=== PATIENT | female | born 1970 | race Caucasian/White ===

== ENCOUNTER 2019-01-02 09:51 | Outpatient (CLI) | payer MEDICAID ==
[2019-01-02 11:40] LABS: THYROID STIMULATING HORMONE 1.44 uIU/mL (0.34-5.60)
[2019-01-02 11:45] LABS: FREE T4 (FREE THYROXINE) 0.74 ng/dL (0.58-1.64)
[2019-01-02 12:08] LABS: FOLLICLE STIMULATING HORMONE 6.07 mIU/mL
[2019-01-02 12:09] LABS: LUTEINIZING HORMONE 10.02 mIU/mL
[2019-01-02 19:36] LABS: TOTAL T3 1.03 ng/mL (0.87-1.78)
[2019-01-03 07:02] LABS: PROGESTERONE 2.2 ng/mL
== END 2019-01-02 09:52 | disposition home or self-care (01) ==
LOC: LAB 09:51
PROVIDERS: ATTEND Internal Medicine Endocrinology, Diabetes & Metabolism
DX: R63.5 Abnormal weight gain (principal); Z86.39 Personal history of other endocrine, nutritional and metabolic disease
CPT/HCPCS: 36415; 82533; 82670; 83001; 83002; 84144; 84439; 84443; 84480; 84481

== ENCOUNTER 2019-02-27 18:08 | Emergency (ER) | payer MEDICAID ==
--- NOTE | 2019-02-27 18:35 | ED Physician Documentation ---
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 She was on coumadin but is not now. More recently had severe unexplained weight gain. Normal TSH. She had an abnormal ACTH stim test and high resting cortisol's. She is scheduled for repeat ACTH stim test and potentially an CT to look for adrenal masses upcoming. Today she had significant shortness of breath with exertion and feels weak and dizzy. She denies leg pain. There is some chest heaviness but no pain per se.) Review of Systems Ten Systems: 10 systems reviewed and negative Constitutional: reports: Fatigue. denies: Fever, Chills Cardiac: denies: Chest pain / pressure, Palpitations, Pedal edema, Calf pain Respiratory: reports: Dyspnea. denies: Cough, Hemoptysis, Wheezing PD PAST MEDICAL HISTORY - Allergies Allergies/Adverse Reactions: Allergies Allergy/AdvReac Type Severity Reaction Status Date / Time No Known Drug Allergies Allergy Verified 02/27/19 18:14 PD ED PE NORMAL - Vitals Vital signs reviewed: Yes - General General: Alert and oriented X 3, No acute distress - HEENT HEENT: PERRL, EOMI - Neck Neck: Supple, no meningeal sign, No bony TTP - Cardiac Cardiac: RRR (But tachycardic), No murmur - Respiratory Respiratory: No respiratory distress, Clear bilaterally - Abdomen Abdomen: Soft, Non tender - Back Back: No CVA TTP, No spinal TTP - Derm Derm: Normal color, Warm and dry - Extremities Extremities: No edema, No calf tenderness / cord - Neuro Neuro: Alert and oriented X 3, Normal speech - Psych Psych: Normal mood, Normal affect Results - Vitals Vitals: Vital Signs - 24 hr 02/27/19 02/27/19 18:11 18:44 Temperature 36.5 C Heart Rate 131 H 118 H Respiratory 26 H 19 Rate Blood Pressure 150/110 H 142/103 H O2 Saturation 96 98 Oxygen O2 Source Room air - EKG (time done) 1820 Rate: Rate (enter#) (115) Rhythm: Sinus tachycardia [place]: Normal Intervals: Normal [place] QRS: Normal Ischemia: Normal ST segments Computer interpretation: Agree with computer - Labs Labs: Laboratory Tests 02/27/19 02/27/19 02/27/19 18:34 18:34 18:34 WBC 11.6 H RBC 4.56 Hgb 13.2 Hct 41.4 MCV 90.8 MCH 28.9 MCHC 31.9 L RDW 14.2 Plt Count 408 MPV 9.4 Neut # (Auto) 6.4 Lymph # (Auto) 4.0 H Bee # (Auto) 0.8 Eos # (Auto) 0.2 Baso # (Auto) 0.1 Absolute Nucleated RBC 0.00 Nucleated RBC % 0.0 Sodium 140 Potassium 4.4 Chloride 103 Carbon Dioxide 22 Anion Gap 15.0 H BUN 18 Creatinine 0.8 Estimated GFR (MDRD) 77 L Glucose 122 H Calcium 9.2 Total Bilirubin 0.6 AST 35 ALT 51 Alkaline Phosphatase 79 Troponin I Troponin I High Sens B-Natriuretic Peptide 10 Total Protein 7.9 Albumin 3.9 Globulin 4.0 Albumin/Globulin Ratio 1.0 Lipase 33 02/27/19 18:34 WBC RBC Hgb Hct MCV MCH MCHC RDW Plt Count MPV Neut # (Auto) Lymph # (Auto) Bee # (Auto) Eos # (Auto) Baso # (Auto) Absolute Nucleated RBC Nucleated RBC % Sodium Potassium Chloride Carbon Dioxide Anion Gap BUN Creatinine Estimated GFR (MDRD) Glucose Calcium Total Bilirubin AST ALT Alkaline Phosphatase Troponin I < 0.04 Troponin I High Sens 6.0 B-Natriuretic Peptide Total Protein Albumin Globulin Albumin/Globulin Ratio Lipase - Rads (name of study) CT PA Radiology: EMP read contemporaneously (no PE, small adrenals, fatty liver) PD MEDICAL DECISION MAKING - ED course ED course: 48-year-old woman with recent unexplained weight gain. She has a history of PE and is more short of breath on exertion today. There is no evidence of cardiopulmonary issue except for some tachycardia. She recently started a new weight loss medication that may be causative and she was advised to stop it pending follow-up. CTPA was negative. I asked them to go through the adrenals given her recent issues with endocrine abnormalities in the abnormal ACTH stim test which was without adrenal mass. Departure - Departure Disposition: 01 Home, Self Care Clinical Impression: Dyspnea Qualifiers: Dyspnea type: dyspnea on exertion Qualified Code(s): R06.09 - Other forms of dyspnea Condition: Good Record reviewed to determine appropriate education?: Yes Instructions: ED Dyspnea Shortness of Breath Comments: As discussed there is no clear cause for your shortness of breath today, angiogram was negative for pulmonary embolism. Incidentally this was also negative for adrenal masses. Your EKG and cardiac labs as well as baseline labs were normal. 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 I would recommend stopping the new Wellbutrin-containing medication until you follow-up as that may be part of the symptoms. Return for new or worsening symptoms.
[2019-02-27 18:39] LABS: BASOPHILS # (AUTO) 0.1 10^3/uL (0.0-0.1); BASOPHILS % (AUTO) 0.4 %; EOSINOPHILS # (AUTO) 0.2 10^3/uL (0.0-0.7); EOSINOPHILS % (AUTO) 1.8 %; HGB - HEMOGLOBIN 13.2 g/dL (12.0-16.0); MEAN CORPUSCULAR HEMOGLOBIN 28.9 pg (27.0-31.0); MEAN CORPUSCULAR HGB CONC 31.9 g/dL (32.0-36.0); MEAN CORPUSCULAR VOLUME 90.8 fL (81.0-99.0); MEAN PLATELET VOLUME 9.4 fL (7.9-10.8); MONOCYTES # (AUTO) 0.8 10^3/uL (0.0-1.0); MONOCYTES % (AUTO) 6.8 %; NEUTROPHILS # (AUTO) 6.4 10^3/uL (1.5-6.6); NEUTROPHILS % (AUTO) 55.7 %; PLT - PLATELET COUNT 408 10^3/uL (130-450); RED BLOOD COUNT 4.56 10^6/uL (4.20-5.40); RED CELL DISTRIBUTION WIDTH 14.2 % (12.0-15.0); WHITE BLOOD COUNT 11.6 x10^3/uL (4.8-10.8)
[2019-02-27] MEDS ORDERED: ACETAMINOPHEN 325 MG TABLET PO STA (18:43)
[2019-02-27 18:53] LABS: ALBUMIN 3.9 g/dL (3.2-5.5); BILIRUBIN,TOTAL 0.6 mg/dL (0.2-1.0); CALCIUM 9.2 mg/dL (8.5-10.3); CREATININE 0.8 mg/dL (0.4-1.0); TOTAL PROTEIN 7.9 g/dL (6.7-8.2)
[2019-02-27 18:56] VITALS: BP 142/103
[2019-02-27] MEDS ORDERED: IOVERSOL 320 100 ML VIAL IVP ONE ×2 (18:59→19:24)
[2019-02-27 19:34] LABS: TROPONIN I < 0.04 ng/mL (<0.49)
--- NOTE | 2019-02-27 19:55 | CT Report ---
Reason: PE protocol, dyspnea Procedure Date: 02/27/2019 Accession Number: [id number] / [id number] Procedure: CT - ANGIO CHEST W/WO CPT Code: FULL RESULT: EXAM: CT ANGIOGRAM CHEST EXAM DATE: 02/27/2019 07:18 PM. CLINICAL HISTORY: Recent diagnosis of Ophelia's disease. Positive ACTH stress test. Patient presents now with dyspnea. COMPARISON: None. TECHNIQUE: Routine helical imaging was performed through the chest in the pulmonary arterial phase. IV Contrast: OPTI 320 80ML. Reconstructions: Coronal 3-D MIP reconstructions.Sagittal and coronal. In accordance with CT protocol optimization, one or more of the following dose reduction techniques were utilized for this exam: automated exposure control, adjustment of mA and/or KV based on patient size, or use of iterative reconstructive technique. This study included both adrenal glands as per request. FINDINGS: Pulmonary Arteries: Diagnostic quality: Adequate through the segmental arteries. No evidence for acute or chronic pulmonary emboli. RV/LV is within normal limits. There is no interventricular septal bowing. There is no reflux of contrast material in the IVC. Lungs/Pleura: No consolidation, nodules, or edema. No effusions or pneumothorax. Mediastinum: Normal. No cardiac enlargement or adenopathy. Thoracic Aorta: Unremarkable. Upper Abdomen: Very small caliber adrenal glands bilaterally. No adrenal mass lesions. Hepatomegaly with fatty infiltration. Other: Bilateral breast implants. IMPRESSION: 1. No pulmonary emboli. 2. Tiny bilateral adrenal glands. 3. Hepatomegaly with fatty infiltration. RADIA
== END 2019-02-27 20:43 | disposition home or self-care (01) ==
LOC: ED 18:08
DX: R06.02 Shortness of breath (principal); R63.5 Abnormal weight gain; R00.0 Tachycardia, unspecified; K76.0 Fatty (change of) liver, not elsewhere classified; Z86.711 Personal history of pulmonary embolism
CPT/HCPCS: 36415; 71275; 80053; 83690; 83880; 84484; 85025; 93005; 99283; 99284; A9270; Q9967

== ENCOUNTER 2019-04-15 14:45 | Emergency (ER) | payer MEDICAID ==
[2019-04-15 16:25] LABS: BILIRUBIN,URINE NEGATIVE (NEGATIVE); CLARITY,URINE CLEAR (CLEAR); GLUCOSE, URINE (UA) NEGATIVE (NEGATIVE); KETONES,URINE (UA) NEGATIVE (NEGATIVE); LEUKOCYTE ESTERASE, URINE NEGATIVE (NEGATIVE); NITRITE,URINE NEGATIVE (NEGATIVE); OCCULT BLOOD,URINE NEGATIVE (NEGATIVE); PROTEIN,URINE NEGATIVE (NEGATIVE); UROBILINOGEN,URINE 0.2 (NORMAL) E.U./dL (NORMAL)
[2019-04-15] MEDS ORDERED: DEXAMETHASONE 10 MG/ML VIAL PO STA (16:28)
[2019-04-15] MEDS ORDERED: KETOROLAC 60 MG/2 ML VIAL IM STA (16:28)
[2019-04-15] MEDS ORDERED: CYCLOBENZAPRINE 10 MG TABLET PO STA (16:28)
[2019-04-15] MEDS ORDERED: CHERRY SYRUP 10 ML UDC PO ONE (16:28)
[2019-04-15] MEDS ORDERED: LIDOCAINE 2% 10 ML MDV SUBQ STA (16:28)
--- NOTE | 2019-04-15 17:26 | ED Physician Documentation ---
History of Present Illness - Stated complaint Stated Complaint: BACK PX/L FINGER PX - Chief complaint Chief Complaint: Back Pain - History obtained from History obtained from: Patient - History of Present Illness Timing: How many days ago (several) Pain level max: 8 Pain level now: 8 - Additonal information Additional information: 48-year-old female presents the emergency department with lower back pain, radiates to the left leg. No loss of bowel or bladder control. No trauma. She has been sleeping on an old bed. Slightly improved with Motrin. Worse with movement and better with rest. She also complains of swelling to the left fourth digit. This is been ongoing for some time. Nothing makes it better or worse. Review of Systems Constitutional: denies: Fever, Chills GI: denies: Nausea, Vomiting : denies: Now EGA Skin: denies: Rash Musculoskeletal: denies: Neck pain, Back pain, Extremity pain Neurologic: denies: Headache PD PAST MEDICAL HISTORY - Past Medical History Past Medical History: Yes Other Past Medical History: cushings - Past Surgical History Past Surgical History: No - Present Medications Home Medications: Ambulatory Orders Medication Instructions Recorded Confirmed Cyclobenzaprine [Flexeril] 10 mg PO TID PRN #20 tablet 04/15/19 Meloxicam [Mobic] 15 mg PO DAILY PRN #20 tablet 04/15/19 - Allergies Allergies/Adverse Reactions: Allergies Allergy/AdvReac Type Severity Reaction Status Date / Time No Known Drug Allergies Allergy Verified 02/27/19 18:14 - Living Situation Living Arrangement: reports: At home - Social History Does the pt smoke?: No Smoking Status: Never smoker Does the pt have substance abuse?: No - Family History Family history: reports: Non contributory PD ED PE NORMAL - Vitals Vital signs reviewed: Yes - General General: Alert and oriented X 3, No acute distress, Well developed/nourished - HEENT HEENT: Moist mucous membranes, Pharynx benign - Neck Neck: Supple, no meningeal sign, No bony TTP - Cardiac Cardiac: RRR, Strong equal pulses - Respiratory Respiratory: No respiratory distress, Clear bilaterally - Abdomen Abdomen: Soft, Non tender, Non distended - Back Back: No spinal TTP, Other (no midline TTP or percussion. Paraspinal spasm B low lumbar.) - Derm Derm: Warm and dry - Extremities Extremities: No edema, Other (Normal bilateral lower extremity patellar and ankle jerk reflexes. Normal great toe extension bilaterally. no saddle anesthesia. 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, No motor deficit, No sensory deficit, Normal speech - Psych Psych: Normal mood, Normal affect Results - Vitals Vitals: Oxygen O2 Source Room air - Labs Labs: Laboratory Tests 04/15/19 16:16 Urine Color YELLOW Urine Clarity CLEAR Urine pH 5.0 Ur Specific [place] 1.020 Urine Protein NEGATIVE Urine Glucose (UA) NEGATIVE Urine Ketones NEGATIVE Urine Occult Blood NEGATIVE Urine Nitrite NEGATIVE Urine Bilirubin NEGATIVE Urine Urobilinogen 0.2 (NORMAL) Ur Leukocyte Esterase NEGATIVE Ur Microscopic Review NOT INDICATED Urine Culture Comments NOT INDICATED Procedures - General procedure General procedure: Left fourth digit was anesthetized, a #11 blade scalpel was placed under the nail fold and purulent material removed. Tolerated well. No cellulitis. Anesthetized with 2% lidocaine and a digital block. No complications. PD MEDICAL DECISION MAKING - ED course Complexity details: considered differential, d/w patient ED course: 48-year-old female presents to the emergency department the paronychia, this is drained. She tolerated this well. She also has sciatica. Pain improved in the emergency department with medications. No evidence of cauda equina or epidural abscess. Patient counseled regarding signs and symptoms for which I believe and urgent re-evaluation would be necessary. Patient with good understanding of and agreement to plan and is comfortable going home at this time This document was made in part using voice recognition software. While efforts are made to proofread this document, sound alike and grammatical errors may occur. Departure - Departure Disposition: 01 Home, Self Care Clinical Impression: Paronychia Sciatica Qualifiers: Laterality: bilateral Qualified Code(s): M54.31 - Sciatica, right side Condition: Good Instructions: ED Fingernail Infec, ED Sciatica Follow-Up: TORY SAXENA MD [Primary Care Provider] - Within 1 week Prescriptions: Cyclobenzaprine [Flexeril] 10 mg PO TID PRN #20 tablet PRN Reason: Spasms Meloxicam [Mobic] 15 mg PO DAILY PRN #20 tablet PRN Reason: pain Comments: Return if you worsen. Follow-up with your doctor for further care. Continue warm water soaks 2-3 times a daily for 10 minutes at a time. You can also apply topical antibiotic ointment to your wound. Do not drive or operate heavy machinery while taking Flexeril. Discharge Date/Time: 04/15/19 17:41
[2019-04-15] MEDS ORDERED: BACITRACIN ZINC OINT 14 GM TOP ONE (17:36)
[2019-04-15 17:42] VITALS: BP 136/98
== END 2019-04-15 17:41 | disposition home or self-care (01) ==
LOC: ED 14:45
DX: L03.012 Cellulitis of left finger (principal); M54.42 Lumbago with sciatica, left side; M54.41 Lumbago with sciatica, right side
CPT/HCPCS: 10060; 81003; 99283; 99284; A9270; 81001; 87086

== ENCOUNTER 2020-09-28 04:48 | Emergency (ER) | payer MEDICAID ==
[2020-09-28] MEDS ORDERED: BUFFERED LIDOCAINE 10 ML SYRINGE SUBQ STA (05:42)
[2020-09-28] MEDS ORDERED: BACITRACIN ZINC OINT 1 PACKET TOP STA (06:10)
--- NOTE | 2020-09-28 06:14 | ED Physician Documentation ---
PD HPI SKIN - Stated complaint Stated Complaint: LUMP - UPPER BACK - Chief complaint Chief Complaint: Wound - History obtained from History obtained from: Patient - Additional information Additional information: 50-year-old woman with history of recurrent left sebaceous cyst on her upper left back presents with progressive increasing pain, swelling and erythema over past few days. aching constant, gradual onset, nonradiating. denies fevers or other symptoms. Review of Systems Constitutional: reports: Other (no fever chills) Skin: reports: Other (fluctuant swelling L upper back) Neurologic: reports: Other (no numbness or neuro deficit) PD PAST MEDICAL HISTORY - Past Medical History Past Medical History: Yes Cardiovascular: Hypertension Endocrine/Autoimmune: Other Musculoskeletal: Fibromyalgia Other Past Medical History: Huron's disease - Past Surgical History Past Surgical History: No Ortho: Other Cardiovascular: Angioplasty Derm: Other - Present Medications Home Medications: Ambulatory Orders Medication Instructions Recorded Confirmed Gabapentin [Gralise] 300 mg PO DAILY 09/28/20 09/28/20 Metoprolol Tartrate [Lopressor] 50 mg PO DAILY 09/28/20 09/28/20 cephALEXin [Keflex] 500 mg PO Q6H #28 tab 09/28/20 lisinopriL [Lisinopril] 20 mg PO DAILY 09/28/20 09/28/20 - Allergies Allergies/Adverse Reactions: Allergies Allergy/AdvReac Type Severity Reaction Status Date / Time No Known Drug Allergies Allergy Verified 09/28/20 05:03 - Social History Does the pt smoke?: No Smoking Status: Never smoker Does the pt drink ETOH?: Yes Does the pt have substance abuse?: No - Immunizations Immunizations are current?: No Immunizations: TDAP >10years/unknown - POLST Patient has POLST: No PD ED PE NORMAL - Vitals Vital signs reviewed: Yes - General General: Alert and oriented X 3, No acute distress, Well developed/nourished - Neck Neck: Supple, no meningeal sign, No bony TTP - Derm Derm: Other (8cm area of fluctuant swelling to L upper back with overlying cellulitis. pocus with discrete fluid collection) - Psych Psych: Normal mood, Normal affect Results - Vitals Vitals: Vital Signs - 24 hr 09/28/20 09/28/20 09/28/20 04:50 05:43 06:21 Temperature 36.8 C 36.3 C L Heart Rate 121 H 109 H 102 H Respiratory 20 16 Rate Blood Pressure 167/104 H 131/95 H O2 Saturation 99 96 97 Oxygen O2 Source Room air - Labs Labs: Microbiology 09/28/20 05:52 Wound Culture - Preliminary Abscess Procedures - Abscess I&D (location) Back left Preparation: Confirmed with ultrasound, Betadine, Lidocaine 1% Incision: Incised with scalpel, Purulent drainage, Irrigated, Culture obtained Other: Pt tolerated well, Dressing applied, Antibiotic prescribed PD MEDICAL DECISION MAKING - ED course ED course: 50yF with uncomplicated abscess to L upper back, drained without incident. antibiotics prescribed. plan to f/u for wound check in 1 week. strict return precautions given. Departure - Departure Disposition: 01 Home, Self Care Clinical Impression: Abscess Condition: Good Instructions: ED Abscess IandD Follow-Up: Bam Mahoney MD [Provider Admit Priv/Credential] - Prescriptions: cephALEXin [Keflex] 500 mg PO Q6H #28 tab Comments: You were seen in the emergency room for abscess drainage. a culture was sent. You should take antibiotics as prescribed and follow up in surgery clinic in [address] Mahoney. Return for any new or worsening symptoms including fevers or increased pain. Discharge Date/Time: 09/28/20 06:32
[2020-09-28 06:23] VITALS: BP 131/95
== END 2020-09-28 06:32 | disposition home or self-care (01) ==
LOC: ED 04:48
DX: L02.212 Cutaneous abscess of back [any part, except buttock and flank] (principal); I10 Essential (primary) hypertension
CPT/HCPCS: 10060; 87070; 87205; 99283; A9270

== ENCOUNTER 2021-07-06 10:49 | Emergency (ER) | payer MEDICAID ==
--- NOTE | 2021-07-06 11:59 | ED Physician Documentation ---
PD HPI URI - Stated complaint Stated Complaint: SOA,SORE THROAT - Chief complaint Chief Complaint: Resp - History obtained from History obtained from: Patient - History of Present Illness Timing - onset: How many weeks ago (2-3) Timing duration: Weeks Timing details: Gradual onset, Still present Associated symptoms: Nasal congestion, Sore throat, Dry cough, Dyspnea. No: Fever, Chest pain Contributing factors: Other (has noted BP elevated.). No: Sick contact, COPD / asthma Similar symptoms before: Has not had sx before Recently seen: Not recently seen Review of Systems Constitutional: denies: Fever Nose: reports: Congestion Throat: reports: Sore throat Cardiac: denies: Chest pain / pressure Respiratory: reports: Dyspnea, Cough GI: reports: Nausea. denies: Abdominal Pain, Vomiting, Diarrhea Skin: denies: Rash Musculoskeletal: reports: Extremity swelling (mild chronic, slightly more lately) PD PAST MEDICAL HISTORY - Past Medical History Cardiovascular: Hypertension Respiratory: None Neuro: None Endocrine/Autoimmune: Other GI: None Musculoskeletal: Fibromyalgia - Past Surgical History Past Surgical History: No Ortho: Other Cardiovascular: Angioplasty Derm: Other - Present Medications Home Medications: Ambulatory Orders Medication Instructions Recorded Confirmed Gabapentin [Gralise] 300 mg PO HS 09/28/20 07/06/21 Metoprolol Tartrate [Lopressor] 50 mg PO BID 09/28/20 07/06/21 lisinopriL [Lisinopril] 20 mg PO DAILY 09/28/20 07/06/21 Albuterol Sulf [Ventolin Hfa 2 - 3 puffs INH Q4HR PRN #1 inhaler 07/06/21 Inhaler] Benzonatate [Tessalon] 100 mg PO TID PRN #20 cap 07/06/21 Thyroid,Pork [[place] Thyroid] 60 mg ORAL DAILY 07/06/21 07/06/21 dexAMETHasone [Decadron] 4 mg PO DAILY #5 tablet 07/06/21 hydroCHLOROthiazide [Hydrodiuril] 25 mg PO DAILY 30 Days #30 tablet 07/06/21 - Allergies Allergies/Adverse Reactions: Allergies Allergy/AdvReac Type Severity Reaction Status Date / Time No Known Drug Allergies Allergy Verified 07/06/21 10:52 - Social History Does the pt smoke?: No Smoking Status: Never smoker Does the pt drink ETOH?: Yes Does the pt have substance abuse?: No - Immunizations Immunizations are current?: No Immunizations: TDAP >10years/unknown - POLST Patient has POLST: No PD ED PE NORMAL - Vitals Vital signs reviewed: Yes - General General: Alert and oriented X 3, No acute distress, Well developed/nourished - HEENT HEENT: Pharynx benign - Neck Neck: Supple, no meningeal sign, No adenopathy - Cardiac Cardiac: RRR, No murmur - Respiratory Respiratory: No: Clear bilaterally (some exp wheezing, no coarse sounds, no fine crackles. ) Results - Vitals Vitals: Oxygen O2 Source Room air - Labs Labs: Laboratory Tests 07/06/21 07/06/21 07/06/21 12:44 12:44 12:44 WBC 9.5 RBC 4.56 Hgb 14.0 Hct 41.2 MCV 90.4 MCH 30.7 MCHC 34.0 RDW 13.7 Plt Count 352 MPV 9.6 Neut # (Auto) 5.4 Lymph # (Auto) 3.0 [place] # (Auto) 0.8 Eos # (Auto) 0.2 Baso # (Auto) 0.1 Absolute Nucleated RBC 0.00 Nucleated RBC % 0.0 Sodium 137 Potassium 4.4 Chloride 102 Carbon Dioxide 24 Anion Gap 11.0 BUN 21 H Creatinine 0.6 Estimated GFR (MDRD) 106 Glucose 95 Calcium 9.4 Total Bilirubin 0.9 AST 31 ALT 55 Alkaline Phosphatase 64 Troponin I High Sens 4.1 Total Protein 7.4 Albumin 4.0 Globulin 3.4 Albumin/Globulin Ratio 1.2 Lipase 29 - Rads (name of study) chest xray Radiology: Prelim report reviewed (no acute process), See rad report PD MEDICAL DECISION MAKING - ED course Complexity details: reviewed results, re-evaluated patient (feeling moderately improved with albuterol. ), considered differential (could be allergies or some URI with persistent dyspnea. Mild edema in legs but does not seem like CHF. Has wheezing.), d/w patient Departure - Departure Disposition: 01 Home, Self Care Clinical Impression: Elevated blood pressure reading Upper respiratory infection Qualifiers: URI type: unspecified URI Qualified Code(s): J06.9 - Acute upper respiratory infection, unspecified Dyspnea Qualifiers: Dyspnea type: shortness of breath Qualified Code(s): R06.02 - Shortness of breath Condition: Stable Record reviewed to determine appropriate education?: Yes Instructions: ED URI Viral W Wheezing Follow-Up: LEIGH ANN VELEZ MD [Primary Care Provider] - Prescriptions: Albuterol Sulf [Ventolin Hfa Inhaler] 2 - 3 puffs INH Q4HR PRN #1 inhaler PRN Reason: Shortness Of Air/Wheezing dexAMETHasone [Decadron] 4 mg PO DAILY #5 tablet hydroCHLOROthiazide [Hydrodiuril] 25 mg PO DAILY 30 Days #30 tablet Benzonatate [Tessalon] 100 mg PO TID PRN #20 cap PRN Reason: Cough Comments: Chest x-ray is clear without any signs of pneumonia nor fluid buildup in the lungs. Your blood count and chemistry panel are good. Your troponin is negative which means no signs of heart muscle injury. I am glad you were feeling some improvement with the albuterol inhaler. Continue 2 to 3 puffs 4 times a day for the next several days to week to help aeration in the lungs. Decadron steroid daily for the next 5 days for inflammation of the airways related to your current respiratory infection. Add benzonatate if needed for cough. Your blood pressure was elevated moderately here. It has improved on its own but given your mild fluid retention generally, it could be reasonable to add a mild water pill to your blood pressure medicine. We can add one called hydrochlorothiazide. Your Covid test should result in the next couple of days. Your symptoms sound like either this or other viral illnesses currently going around. Return to the ER if worsening symptoms. I transmitted your prescriptions to the would be community pharmacy here in [place]. You have a Covid test pending. You need to self quarantine until the result is done and negative. Do not leave your house. Do not get near anybody. The results should be done in 48 to 72 hours, but sometimes longer. We will call with a positive result, the fastest way to get a negative result for confirmation though is to go to the hospital website at [email or web address], click on the my [email or web address] tab and sign up for the patient portal. If any friends or family get sick and would like to have a Covid test done, but do not have signs or symptoms that would necessitate being hospitalized, we encourage testing throughone of the local pharmacies or the Health Department. Call them to schedule an appointment. Discharge Date/Time: 07/06/21 13:54
[2021-07-06] MEDS ORDERED: BENZONATATE 100 MG CAPSULE PO STA (12:29)
[2021-07-06] MEDS ORDERED: ALBUTEROL 1 PUFF INH STA (12:29)
[2021-07-06] MEDS ORDERED: DEXAMETHASONE 10 MG/ML VIAL PO STA (12:29)
[2021-07-06] MEDS ORDERED: CHERRY SYRUP 10 ML UDC PO ONE (12:29)
[2021-07-06 12:48] LABS: BASOPHILS # (AUTO) 0.1 10^3/uL (0.0-0.1); BASOPHILS % (AUTO) 0.5 %; EOSINOPHILS # (AUTO) 0.2 10^3/uL (0.0-0.7); EOSINOPHILS % (AUTO) 2.3 %; HCT - HEMATOCRIT 41.2 % (37.0-47.0); LYMPHOCYTES % (AUTO) 31.5 %; MEAN CORPUSCULAR HEMOGLOBIN 30.7 pg (27.0-31.0); MEAN CORPUSCULAR VOLUME 90.4 fL (81.0-99.0); MEAN PLATELET VOLUME 9.6 fL (7.9-10.8); MONOCYTES # (AUTO) 0.8 10^3/uL (0.0-1.0); MONOCYTES % (AUTO) 8.8 %; NEUTROPHILS # (AUTO) 5.4 10^3/uL (1.5-6.6); NEUTROPHILS % (AUTO) 56.7 %; PLT - PLATELET COUNT 352 10^3/uL (130-450); RED BLOOD COUNT 4.56 10^6/uL (4.20-5.40); RED CELL DISTRIBUTION WIDTH 13.7 % (12.0-15.0); WHITE BLOOD COUNT 9.5 x10^3/uL (4.8-10.8)
[2021-07-06 13:05] LABS: ALBUMIN/GLOBULIN RATIO 1.2 (1.0-2.2); BILIRUBIN,TOTAL 0.9 mg/dL (0.2-1.0); CALCIUM 9.4 mg/dL (8.5-10.3); CREATININE 0.6 mg/dL (0.4-1.0); POTASSIUM 4.4 mmol/L (3.5-5.0); TOTAL PROTEIN 7.4 g/dL (6.7-8.2)
--- NOTE | 2021-07-06 13:07 | XRAY Report ---
PROCEDURE: Chest 1 View X-Ray INDICATIONS: cough and dyspnea TECHNIQUE: One view of the chest was acquired. COMPARISON: None FINDINGS: Surgical changes and devices: None. Lungs and pleura: No pleural effusions or pneumothorax. Lungs are clear. Mediastinum: Mediastinal contours appear normal. Heart size is normal. Bones and chest wall: No suspicious bony lesions. Overlying soft tissues appear unremarkable. IMPRESSION: No acute cardiopulmonary disease. Reviewed by: Brittani Callejas MD on 07/06/2021 1:05 PM [facility] Approved by: Brittani Callejas MD on 07/06/2021 1:05 PM [facility] Station ID: [id number]
[2021-07-06 13:22] VITALS: BP 124/92
== END 2021-07-06 13:54 | disposition home or self-care (01) ==
LOC: ED 10:49
DX: J06.9 Acute upper respiratory infection, unspecified (principal); I10 Essential (primary) hypertension; Z20.822 Contact with and (suspected) exposure to COVID-19
CPT/HCPCS: 36415; 71045; 80053; 83690; 84484; 85025; 87635; 94640; 94664; 99284; A9270

== ENCOUNTER 2023-03-30 11:10 | Emergency (ER) | payer MEDICAID ==
[2023-03-30 11:28] VITALS: BP 136/91; O2SAT 94
--- NOTE | 2023-03-30 12:09 | ED Physician Documentation ---
History of Present Illness - Stated complaint Stated Complaint: SORE THROAT,COUGH - Chief complaint Chief Complaint: General - History of Present Illness Timing: How many days ago (3) Pain level max: 0 Pain level now: 0 - Additonal information Additional information: Patient is a 52-year-old female who presents to the emergency department with cough and congestion for the past 3 days. She had fevers and chills at home. She states she is concerned that she could have COVID. She states she did not take a COVID test. The cough is mostly dry. She states that the fevers have not been present today and that she does feel better today. Does not have any history of lung disease. Does not use inhalers. Does not smoke or vape. Review of Systems Constitutional: denies: Fever, Chills GI: denies: Vomiting, Diarrhea Skin: denies: Rash Musculoskeletal: denies: Neck pain, Back pain Neurologic: denies: Headache PD PAST MEDICAL HISTORY - Past Medical History Cardiovascular: Hypertension Respiratory: None Neuro: None Endocrine/Autoimmune: Other GI: None Musculoskeletal: Fibromyalgia - Past Surgical History Past Surgical History: No Ortho: Other Cardiovascular: Angioplasty Derm: Other - Present Medications Home Medications: Ambulatory Orders Medication Instructions Recorded Confirmed Gabapentin [Gralise] 300 mg PO HS 09/28/20 07/06/21 Metoprolol Tartrate [Lopressor] 50 mg PO BID 09/28/20 07/06/21 lisinopriL [Lisinopril] 20 mg PO DAILY 09/28/20 07/06/21 Albuterol Sulf [Ventolin Hfa 2 - 3 puffs INH Q4HR PRN #1 inhaler 07/06/21 Inhaler] Benzonatate [Tessalon] 100 mg PO TID PRN #20 cap 07/06/21 Thyroid,Pork [[place] Thyroid] 60 mg ORAL DAILY 07/06/21 07/06/21 dexAMETHasone [Decadron] 4 mg PO DAILY #5 tablet 07/06/21 hydroCHLOROthiazide [Hydrodiuril] 25 mg PO DAILY 30 Days #30 tablet 07/06/21 - Allergies Allergies/Adverse Reactions: Allergies Allergy/AdvReac Type Severity Reaction Status Date / Time No Known Drug Allergies Allergy Verified 07/06/21 10:52 - Social History Does the pt smoke?: No Smoking Status: Never smoker Does the pt drink ETOH?: Yes Does the pt have substance abuse?: No - Immunizations Immunizations are current?: No Immunizations: TDAP >10years/unknown - POLST Patient has POLST: No PD ED PE NORMAL - Vitals Vital signs reviewed: Yes - General General: Alert and oriented X 3, No acute distress - HEENT HEENT: PERRL, Moist mucous membranes - Neck Neck: Supple, no meningeal sign - Cardiac Cardiac: RRR, Strong equal pulses - Respiratory Respiratory: No respiratory distress, Clear bilaterally - Abdomen Abdomen: Soft, Non tender, Non distended - Derm Derm: Warm and dry, No rash - Neuro Neuro: Alert and oriented X 3 - Psych Psych: Normal mood, Normal affect Results - Vitals Vitals: Vital Signs - 24 hr 03/30/23 11:16 Temperature 36.6 C Heart Rate 100 Respiratory 20 Rate Blood Pressure 136/91 H O2 Saturation 94 Oxygen O2 Source Room air - Labs Labs: Laboratory Tests 03/30/23 03/30/23 Unknown Unknown Nasal Adenovirus (PCR) NOT DETECTED Nasal B. parapertussis DNA (PCR) NOT DETECTED Nasal Coronavir 229E PCR NOT DETECTED Nasal Coronavir HKU1 PCR NOT DETECTED Nasal Coronavir NL63 PCR NOT DETECTED Nasal Coronavir OC43 PCR NOT DETECTED Nasal Enterovir/Rhinovir PCR NOT DETECTED Nasal Influenza B PCR NOT DETECTED Nasal Influenza A PCR NOT DETECTED Nasal Parainfluen 1 PCR NOT DETECTED Nasal Parainfluen 2 PCR NOT DETECTED Nasal Parainfluen 3 PCR NOT DETECTED Nasal Parainfluen 4 PCR NOT DETECTED Nasal RSV (PCR) NOT DETECTED Nasal B.pertussis DNA PCR NOT DETECTED Nasal C.pneumoniae (PCR) NOT DETECTED Emil Human Metapneumo PCR NOT DETECTED Nasal M.pneumoniae (PCR) NOT DETECTED Nasal SARS-CoV-2 (PCR) DETECTED A Group A Strep Rapid Negative - Rads (name of study) Chest x-ray Relevant Findings:: Final report received, See rad report (Peribronchial cuffing suggestive of infectious or inflammatory bronchitis.) PD Medical Decision Making - ED course Complexity details: reviewed results, re-evaluated patient, considered differential, d/w patient ED course: 52-year-old female presents to the emergency department with COVID. Her chest x-ray is consistent with a viral inflammation. No indication for antibiotics. No hypoxia. No respiratory distress. Patient declines antiviral therapy for COVID. She is well-appearing, nontoxic. We will continue supportive care and have her follow-up with her doctor. Patient counseled regarding signs and symptoms for which I believe and urgent re-evaluation would be necessary. Patient with good understanding of and agreement to plan and is comfortable going home at this time This document was made in part using voice recognition software. While efforts are made to proofread this document, sound alike and grammatical errors may occur. Departure - Departure Disposition: 01 Home, Self Care Clinical Impression: COVID-19 Condition: Good Instructions: ED Viral Syndrome Follow-Up: your,doctor in 1 week [Other] Comments: You have tested positive for COVID today. Please go home and rest. Please return if you worsen. Isolation precautions for COVID Day 0 is your first day of symptoms or a positive viral test. Day 1 is the first full day after your symptoms developed or your test specimen was collected. If you have COVID-19 or have symptoms, isolate for at least 5 days. IF YOU: Tested positive for COVID-19 or have symptoms, regardless of vaccination status Stay home for at least 5 days Stay home for 5 days and isolate from others in your home. Wear a well-fitting mask if you must be around others in your home. Do not travel. Ending isolation if you had symptoms End isolation after 5 full days if you are fever-free for 24 hours (without the use of fever-reducing medication) and your symptoms are improving. Ending isolation if you did NOT have symptoms End isolation after at least 5 full days after your positive test. If you got very sick from COVID-19 or have a weakened immune system You should isolate for at least 10 days. Consult your doctor before ending isolation. Take precautions until day 10 Wear a well-fitting mask Wear a well-fitting mask for 10 full days any time you are around others inside your home or in public. Do not go to places where you are unable to wear a mask. Do not travel Do not travel until a full 10 days after your symptoms started or the date your positive test was taken if you had no symptoms. Avoid being around people who are more likely to get very sick from COVID-19. Forms: PCP List Discharge Date/Time: 03/30/23 13:41
[2023-03-30 12:25] LABS: RAPID STREP SCREEN Negative (Negative)
--- NOTE | 2023-03-30 12:48 | XRAY Report ---
PROCEDURE: Chest 1 View X-Ray INDICATIONS: cough TECHNIQUE: One view of the chest was acquired. COMPARISON: None. FINDINGS: Surgical changes and devices: None. Lungs and pleura: No pleural effusions or pneumothorax. Lungs are clear. Peribronchial cuffing. Mediastinum: Mediastinal contours appear normal. Heart size is normal. Bones and chest wall: No suspicious bony lesions. Overlying soft tissues appear unremarkable. IMPRESSION: Peribronchial cuffing, suggestive of infectious or inflammatory bronchitis. Reviewed by: Ifeanyi Maddox on 03/30/2023 12:46 PM PDT Approved by: Ifeanyi Maddox on 03/30/2023 12:46 PM PDT Station ID: [id number]
[2023-03-30 13:07] LABS: B. PARAPERTUSSIS- RESP PCR PAN NOT DETECTED; B. PERTUSSIS- RESP PCR PANEL NOT DETECTED; C. PNEUMONIAE- RESP PCR PANEL NOT DETECTED; CORONAVIRUS 229E-RESP PCR NOT DETECTED; CORONAVIRUS HKU1-RESP PCR NOT DETECTED; CORONAVIRUS NL63-RESP PCR NOT DETECTED; CORONAVIRUS OC43-RESP PCR NOT DETECTED; HUMAN METAPNEUMOVIRUS NOT DETECTED; INFLUENZA A- RESP PCR PANEL NOT DETECTED; INFLUENZA B - RESP PCR PANEL NOT DETECTED; M. PNEUMONIAE- RESP PCR PANEL NOT DETECTED; PARAINFLUENZA VIRUS 1 NOT DETECTED; PARAINFLUENZA VIRUS 2 NOT DETECTED; PARAINFLUENZA VIRUS 3 NOT DETECTED; PARAINFLUENZA VIRUS 4 NOT DETECTED; RHINOVIRUS/ENTEROVIRUS NOT DETECTED; RSV- RESP PCR PANEL NOT DETECTED
[2023-03-30 13:08] LABS: SARS-CoV-2 -RESP PCR PANEL DETECTED
== END 2023-03-30 13:41 | disposition home or self-care (01) ==
LOC: ED 11:10
DX: U07.1 COVID-19 (principal); I10 Essential (primary) hypertension; Z79.899 Other long term (current) drug therapy
CPT/HCPCS: 87070; 87430; 87633; 99283; 99284